=== PATIENT | female | born 1995 | race Caucasian/White ===

== ENCOUNTER 2020-11-21 23:44 | Emergency (ER) | payer OTHER ==
[~2020-11-21] VITALS: Ht 157.5 cm; Wt 53.5 kg
[2020-11-22] MEDS ORDERED: IV NORMAL SALINE 1000 ML BAG IV ONE
[2020-11-22] MEDS ORDERED: ONDANSETRON 4 MG/2 ML VIAL IV ONE
--- NOTE | 2020-11-22 00:02 | NUR ---
PT AMBULATED TO ER C/O N/V STATED BY PATIENT THAT IT COULD HAVE BEEN DUE TO FOOD POISONING WHICH CAUSED A FRANKLIN STRARTED 2 HRS [employer] LOCATED ON FOREHEAD, NONRADIATING PL: 9/10, THROBBING. A/O X4, NO SOB OR LABORED BREATHING, AFEBRILE. DENIES CP/PRESSURE. CLEAR SPEECH, COMPLETE SENTENCES.
--- NOTE | 2020-11-22 00:08 | NUR ---
DR. RAMOS AT BEDSIDE, MSE IN PROGRESS.
[2020-11-22] MEDS ORDERED: METOCLOPRAMIDE HCL 10 MG/2 ML VIAL IV ONE (00:15)
[2020-11-22] MEDS ORDERED: diphenhydrAMINE 50 MG/1 ML VIAL IV ONE (00:15)
[2020-11-22] MEDS ORDERED: ONDANSETRON 4 MG/2 ML VIAL ONE (00:20)
[2020-11-22] MEDS ORDERED: diphenhydrAMINE 50 MG/1 ML VIAL ONE (00:24)
[2020-11-22] MEDS ORDERED: METOCLOPRAMIDE HCL 10 MG/2 ML VIAL ONE (00:24)
[2020-11-22 00:25] LABS: HEMATOCRIT 37.3 % (31.2-41.9); MEAN CORPUSCULAR HEMOGLOBIN 30.2 uug (24.7-32.8); PLATELET COUNT (AUTO) 199 K/uL (179-408)
[2020-11-22 00:42] LABS: CARBON DIOXIDE 26 mmol/L (21-32); CHLORIDE 104 mmol/L (98-107); CREATININE 0.6 mg/dL (0.6-1.3); GLUCOSE 95 mg/dL (74-106); POTASSIUM 3.8 mmol/L (3.5-5.1); UREA NITROGEN, BLOOD 8 mg/dL (7-18)
[2020-11-22 00:48] LABS: ALANINE AMINOTRANSFERASE 13 U/L (14-59); ALKALINE PHOSPHATASE 50 U/L (50-136); ASPARTATE AMINOTRANSFERASE 17 U/L (15-37); BILIRUBIN,DIRECT 0.1 mg/dL (0.0-0.2); BILIRUBIN,TOTAL 0.3 mg/dL (0.2-1.0); LIPASE 110 U/L (73-393); TOTAL PROTEIN, SERUM 7.8 g/dL (6.4-8.2)
[2020-11-22] MEDS ORDERED: ONDA4TAB11 PO (01:55)
--- NOTE | 2020-11-22 02:05 | NUR ---
Patient discharged to home in stable condition. No changes in LOC. Steady gait. Denies any pain/discomfort upon discharge Written and verbal after care instructions given. No N/V/D. Denies FRANKLIN or dizziness. Patient verbalizes understanding of instructions. Stressed follow up or return to ER for worsening s/s. Steady gait. Picked up by mother.
[2020-11-22 02:21] VITALS: BP 123/72
== END 2020-11-22 02:06 | disposition home or self-care (01) ==
LOC: ER 23:45
DX: R11.2 Nausea with vomiting, unspecified (principal); R51.9 Headache, unspecified; F17.210 Nicotine dependence, cigarettes, uncomplicated
CPT/HCPCS: 36415; 80048; 80076; 83690; 84702; 85025; 96361; 96374; 96375; 99284; 99406; J1200; J2405; J2765; J7030